=== PATIENT | female | born 1960 | race Caucasian/White ===

== ENCOUNTER 2016-10-06 23:13 | Inpatient (IN) | payer OTHER ==
[~2016-10-06] VITALS: Ht 160 cm; Wt 84.7 kg
[~2016-10-06 23:13] MED LIST: ADVAIR; ADVAIR 100/501 DISK IH; ADVAIR 250/501 DISK IH; ALBUTEROL SULF8.5 GM IH; ALBUTEROL2.5 MG/3 M IH; ALEVE220 MG PO; ALPRAZOLAM0.5 MG PO; ALPRAZOLAM1 MG PO; AMITRIPTYLINE100 MG PO; AMITRIPTYLINE150 MG PO; AMOXICILLIN875 MG PO; ATENOLOL100 MG PO; AZITHROMYCIN250 MG PO; AZITHROMYCIN500 M1 PO; BACLOFEN20 MG PO; BENICAR20 MG PO; CATAPRES0.1 MG PO; CEFTIN500 MG PO; CLEOCIN300 MG PO; CLONIDINE HCL0.1 MG PO; COMBIVENT INH14.7 GM IH; COMBIVENT RESPIM4 GM IH; COMBIVENT200 INHALA IH; CYPROHEPTAD2 MG/5 M2 PO; DALIRESP500 MCG PO; DIAZEPAM5 MG PO; DUONEB 2.5-0.5 M3 ML AEROSOL; ELAVIL100 MG PO; ELAVIL150 MG PO; FEXOFENADINE HC60 MG PO; Habitrol,Nicoderm CQ TD; INNOPRAN XL120 MG PO; KETOCONAZOLE60 GM TP; KLONOPIN1 MG PO; KLOR-CON M2020 MEQ PO; LASIX40 MG PO; LISINOPRIL40 MG PO; LYRICA300 MG PO; Levaquin PO; MAGIC MOUTHWASH PO; MIRAPEX0.5 MG PO; MIRAPEX1 MG PO; MOTRIN800 MG PO; NICOTINE PATCH1 EAC1 TD; NICOTINE PATCH1 EAC2 TD; NITROSTAT0.4 MG SL; NIZORAL 2% CREA15 GM TP; OXYCODON-ACETA1 EACH PO; OXYCODONE HCL10 MG PO; OXYCODONE HCL15 MG PO; OXYCODONE HCL20 M1 PO; PERCOCET 7.51 TABLET PO; PHENERGAN-CODE120 ML PO; PRAMIPEXOLE DIHY1 MG PO; PREDNISONE TAPER PO; PREDNISONE10 MG PO; PREDNISONE20 MG PO; PREDNISONE50 MG PO; PRIMIDONE250 MG PO; PRIMIDONE50 MG PO; PRINIVIL20 MG PO; PROAIR HFA8.5 GM IH; PROMETHAZINE HC25 M1 PO; PROPRANOLOL HC160 MG PO; PROPRANOLOL HCL80 M1 PO; PROVENTIL,2.5 MG/3 M IH; REQUIP0.5 MG PO; REVATIO20 MG PO; Revatio PO; SAVELLA50 MG PO; SEROQUEL12.5 MG PO; SILDENAFIL20 MG PO; SIMVASTATIN10 MG PO; SPIRIVA1 INHALATI IH; TENORMIN100 MG PO; THEO-DUR,THEOC300 MG PO; TOPAMAX100 MG PO; TRILEPTAL600 MG PO; Theo-Dur,Theocron PO; VENTOLIN HFA18 GM IH; VENTOLIN17 GM IH; XANAX1 MG PO; ZESTRIL,PRINIVI20 MG PO; ZESTRIL40 MG PO; ZITHROMAX TRI-500 MG PO; ZOCOR40 MG PO; ZOFRAN4 MG PO; ZOFRAN8 MG PO; Zestril,Prinivil PO
[2016-10-06 23:45] LABS: BASE EXCESS 6.4 mEq/L (-3 to +3); BICARBONATE 37.2 mEq/L (22-26); CARBOXY HGB 7.1 % (0-5); COMMENTS - BLOOD GASES C+A+; DEVICE NC; METHEMOGLOBIN 0.5 % (0-1.5); O2 FLOW 6 L/MIN; PCO2 81 mm Hg (35-45); PO2 71 mm Hg (80-100); SITE RR; pH 7.27 (7.35-7.45)
[2016-10-07] VITALS (16 sets, daily range): BP systolic 136–176; BP diastolic 66–94
[2016-10-07] LABS: HEMATOCRIT 52.3 % (36.0-46.0); MCHC 31.2 G/DL (30.0-36.0); MCV 86.6 FL (83-99); MEAN PLAT.VOLUME 10.2 uM^3 (9.5-12.4); PLATELET COUNT 136 K/uL (156-360); RBC DIS.WIDTH-CV 14.9 % (11.8-14.6); RBC DIS.WIDTH-SD 47.1 % (39-53); RED BLOOD COUNT 6.04 M/uL (3.80-5.20); WHITE BLOOD COUNT 10.3 K/uL (4.1-10.2)
[2016-10-07 00:11] LABS: CHLORIDE 101 mEq/L (99-109); INTER. NORMALIZED RATIO 1.1; POTASSIUM 4.7 mEq/L (3.7-5.4); PROTHROMBIN TIME 11.4 (9.2-11.2); SODIUM 141 mEq/L (136-147)
[2016-10-07 00:12] LABS: GLUCOSE 175 mg/dL (70-99)
[2016-10-07 00:14] LABS: ANION GAP 8 MEQ/L (2-14)
[2016-10-07 00:16] LABS: GFR ESTIMATE (CALCULATED) > 59 mL/min/
[2016-10-07 00:17] LABS: UREA NITROGEN (BUN) 12 mg/dL (9-23)
[2016-10-07 00:22] LABS: TROP-I INTERPRETATION NEGATIVE; TROPONIN-I 0.03 ng/mL (0.0-0.30)
[2016-10-07 00:27] LABS: QUANTITATIVE HCG < 4.0 MIU/ML
[2016-10-07] MEDS ORDERED: DESYREL100 MG PO (00:33)
[2016-10-07] MEDS ORDERED: ROPINIROLE HCL1 MG PO (00:34)
[2016-10-07] MEDS ORDERED: NEURONTIN300 MG PO (00:34)
[2016-10-07] MEDS ORDERED: FUROSEMIDE40 MG PO (00:35)
[2016-10-07] MEDS ORDERED: DURAGESIC12 MCG TD (00:35)
[2016-10-07] MEDS ORDERED: TIZANIDINE HCL4 MG PO (00:35)
[2016-10-07 00:36] LABS: BASE EXCESS 6.7 mEq/L (-3 to +3); BICARBONATE 36.4 mEq/L (22-26); CARBOXY HGB 6.6 % (0-5); COMMENTS - BLOOD GASES C+A+; DEVICE NIV; FI02 30 %; METHEMOGLOBIN 0.8 % (0-1.5); MODE SPONT; PCO2 74 mm Hg (35-45); PEEP 5 CM/H20; PO2 52 mm Hg (80-100); PRES. SUPPORT 12 CM/H2O; SITE RR; TOTAL RESP RATE 27 resp/min
[2016-10-07] MEDS ORDERED: ZITHROMAX250 MG PO (00:36)
[2016-10-07] MEDS ORDERED: IBUPROFEN800 MG PO (00:36)
[2016-10-07] MEDS ORDERED: AZITHROMYCIN500 M1 PO (00:38)
[2016-10-07 02:16] LABS: INFLUENZA A VIRAL ANTIGEN NEGATIVE; INFLUENZA B VIRAL ANTIGEN NEGATIVE
[2016-10-07 03:08] LABS: METH RESISTANT S AUREUS PCR NEGATIVE (NEGATIVE)
[2016-10-07 03:13] LABS: PROBE CHECK PASS; SPECIMEN PROCESSING CONTROL PASS
[2016-10-07 12:59] LABS: ANION GAP 11 MEQ/L (2-14); CHLORIDE 97 MEQ/L (99-109); GFR ESTIMATE (CALCULATED) > 59 mL/min/; GLUCOSE 226 mg/dL (70-99); POTASSIUM 4.3 MEQ/L (3.7-5.4); SAMPLE HEMOLYSIS CHECK 0; SAMPLE ICTERIC CHECK 0; SAMPLE LIPEMIA CHECK 0; SODIUM 137 MEQ/L (136-147); UREA NITROGEN (BUN) 15 mg/dL (9-23)
[2016-10-08 03:12] VITALS: BP 138/84
[2016-10-08 07:20] LABS: ANION GAP 6 MEQ/L (2-14); CHLORIDE 98 MEQ/L (99-109); GFR ESTIMATE (CALCULATED) > 59 mL/min/; GLUCOSE 190 mg/dL (70-99); POTASSIUM 4.7 MEQ/L (3.7-5.4); SAMPLE HEMOLYSIS CHECK 0; SAMPLE ICTERIC CHECK 0; SAMPLE LIPEMIA CHECK 0; SODIUM 139 MEQ/L (136-147)
[2016-10-08 07:22] LABS: UREA NITROGEN (BUN) 24 mg/dL (9-23)
[2016-10-08 07:38] LABS: EOSINOPHIL (%) 0 % (0-5); IMMATURE GRANULOCYTE (%) 0.3 % (0.0-0.7); IMMATURE GRANULOCYTE COUNT 0.1 K/uL; LYMPHOCYTE COUNT 0.5 K/uL (1.0-2.8); MCH 28.1 PG (29.0-34.0); MCHC 32.1 G/DL (30.0-36.0); MCV 87.4 FL (83-99); MEAN PLAT.VOLUME 11.3 uM^3 (9.5-12.4); MONOCYTE (%) 1.6 % (3-12); MONOCYTE COUNT 0.3 K/uL (0-0.8); NEUTROPHIL (%) 95.3 % (45-76); NEUTROPHIL COUNT 17.1 K/uL (1.8-6.4); PLATELET COUNT 143 K/uL (156-360); RBC DIS.WIDTH-CV 14.4 % (11.8-14.6); RBC DIS.WIDTH-SD 45.7 % (39-53); RED BLOOD COUNT 5.38 M/uL (3.80-5.20)
[2016-10-08 07:40] LABS: WHITE BLOOD COUNT 17.9 K/uL (4.1-10.2)
[2016-10-08 08:26] VITALS: BP 144/81
[2016-10-08 12:00] VITALS: BP 146/74
[2016-10-08 16:34] VITALS: BP 126/80
[2016-10-08 19:35] VITALS: BP 120/60
[2016-10-08 20:54] LABS: POINT-OF-CARE METER ID UU13113725
[2016-10-08 22:51] VITALS: BP 151/77
[2016-10-09 03:15] VITALS: BP 128/75
[2016-10-09 05:36] LABS: POINT-OF-CARE METER ID UU13113725
[2016-10-09 06:21] LABS: EOSINOPHIL (%) 0 % (0-5); HEMATOCRIT 47.5 % (36.0-46.0); IMMATURE GRANULOCYTE (%) 0.4 % (0.0-0.7); IMMATURE GRANULOCYTE COUNT 0.1 K/uL; LYMPHOCYTE COUNT 0.7 K/uL (1.0-2.8); MCH 26.3 PG (29.0-34.0); MCHC 30.1 G/DL (30.0-36.0); MCV 87.3 FL (83-99); MONOCYTE (%) 2.1 % (3-12); MONOCYTE COUNT 0.3 K/uL (0-0.8); NEUTROPHIL (%) 92.4 % (45-76); RBC DIS.WIDTH-CV 14.7 % (11.8-14.6); RBC DIS.WIDTH-SD 46.7 % (39-53); RED BLOOD COUNT 5.44 M/uL (3.80-5.20); WHITE BLOOD COUNT 14.1 K/uL (4.1-10.2)
[2016-10-09 06:45] LABS: ALKALINE PHOSPHATASE 98 IU/L (3-129); ANION GAP 4 MEQ/L (2-14); CHLORIDE 94 MEQ/L (99-109); GFR ESTIMATE (CALCULATED) > 59 mL/min/; GLUCOSE 163 mg/dL (70-99); MEAN PLAT.VOLUME 10.6 uM^3 (9.5-12.4); POTASSIUM 4.4 MEQ/L (3.7-5.4); SAMPLE HEMOLYSIS CHECK 0; SAMPLE ICTERIC CHECK 0; SAMPLE LIPEMIA CHECK 0; SODIUM 135 MEQ/L (136-147); TOTAL BILIRUBIN 0.4 MG/DL (0.0-1.0); UREA NITROGEN (BUN) 33 mg/dL (9-23); USER ID SLU
[2016-10-09 06:46] LABS: PLATELET COUNT UNABLE TO REPORT K/uL (156-360)
[2016-10-09 08:28] VITALS: BP 143/78
[2016-10-09 08:40] LABS: POINT-OF-CARE METER ID UU13113725
[2016-10-09 10:25] LABS: Estimated Average Glucose 140 mg/dL (70-123); HEMOGLOBIN A1c (GLYCOHEMOGLOB) 6.5 % HGB (Below 5.7)
[2016-10-09 11:40] VITALS: BP 145/78
[2016-10-09 11:43] LABS: ADD MIUA? NO; BILIRUBIN NEGATIVE; BLOOD NEGATIVE; COLOR YELLOW ((YELLOW)); GLUCOSE (STRIP) 50; KETONES NEGATIVE; LEUKOCYTES NEGATIVE; NITRITE NEGATIVE; PROTEIN (STRIP) NEGATIVE; SPECIFIC GRAVITY 1.025 (1.000-1.030); UCUL ADDED? NO; UROBILINOGEN 0.2 MG/DL (0.2-1.0)
[2016-10-09 11:48] LABS: POINT-OF-CARE METER ID UU13113725
[2016-10-09 16:05] VITALS: BP 144/65
[2016-10-09 19:21] VITALS: BP 171/72
[2016-10-09 22:42] VITALS: BP 148/65
[2016-10-10 03:05] VITALS: BP 148/84; BP 184/86
[2016-10-10 07:15] LABS: EOSINOPHIL (%) 0 % (0-5); HEMATOCRIT 49.9 % (36.0-46.0); IMMATURE GRANULOCYTE (%) 0.4 % (0.0-0.7); IMMATURE GRANULOCYTE COUNT 0.1 K/uL; LYMPHOCYTE COUNT 0.9 K/uL (1.0-2.8); MCH 27.4 PG (29.0-34.0); MCHC 32.1 G/DL (30.0-36.0); MCV 85.3 FL (83-99); MONOCYTE (%) 4.9 % (3-12); MONOCYTE COUNT 0.7 K/uL (0-0.8); NEUTROPHIL (%) 88.1 % (45-76); NEUTROPHIL COUNT 11.8 K/uL (1.8-6.4); RBC DIS.WIDTH-CV 14.1 % (11.8-14.6); RBC DIS.WIDTH-SD 43.8 % (39-53); RED BLOOD COUNT 5.85 M/uL (3.80-5.20); WHITE BLOOD COUNT 13.4 K/uL (4.1-10.2)
[2016-10-10 07:18] VITALS: BP 162/84
[2016-10-10 07:38] LABS: ALKALINE PHOSPHATASE 92 IU/L (3-129); ANION GAP 5 MEQ/L (2-14); CHLORIDE 95 MEQ/L (99-109); GFR ESTIMATE (CALCULATED) > 59 mL/min/; GLUCOSE 101 mg/dL (70-99); POTASSIUM 4.8 MEQ/L (3.7-5.4); SAMPLE HEMOLYSIS CHECK 1; SAMPLE ICTERIC CHECK 0; SAMPLE LIPEMIA CHECK 0; SODIUM 137 MEQ/L (136-147); TOTAL BILIRUBIN 0.6 MG/DL (0.0-1.0); UREA NITROGEN (BUN) 21 mg/dL (9-23)
[2016-10-10 09:19] LABS: MEAN PLAT.VOLUME 10.4 uM^3 (9.5-12.4); PLAT.SUFFICIENCY DECREASED; USER ID TLW
[2016-10-10 09:21] LABS: PLATELET COUNT 142 K/uL (156-360)
[2016-10-10 10:37] LABS: BASE EXCESS 8.8 mEq/L (-3 to +3); BICARBONATE 36.7 mEq/L (22-26); CARBOXY HGB 2.1 % (0-5); METHEMOGLOBIN 1.2 % (0-1.5); pH 7.38 (7.35-7.45)
[2016-10-10 10:38] LABS: COMMENTS - BLOOD GASES A+C+; DEVICE NC; O2 FLOW 3 L/MIN; PCO2 62 mm Hg (35-45); PO2 63 mm Hg (80-100); SITE LR; TOTAL RESP RATE 18 resp/min
[2016-10-10 11:36] LABS: POINT-OF-CARE METER ID UU13113725
[2016-10-10 11:40] VITALS: BP 172/85
[2016-10-10 14:57] VITALS: BP 173/79
[2016-10-10 19:12] VITALS: BP 148/68
[2016-10-10 22:47] VITALS: BP 104/58
[2016-10-11 03:45] VITALS: BP 171/86
[2016-10-11 04:31] VITALS: BP 153/84
[2016-10-11 07:27] LABS: EOSINOPHIL (%) 0.7 % (0-5); EOSINOPHIL COUNT 0.1 K/uL (0-0.3); HEMATOCRIT 48.4 % (36.0-46.0); IMMATURE GRANULOCYTE (%) 0.3 % (0.0-0.7); LYMPHOCYTE COUNT 1.4 K/uL (1.0-2.8); MCH 27.5 PG (29.0-34.0); MCHC 32.4 G/DL (30.0-36.0); MCV 84.8 FL (83-99); MEAN PLAT.VOLUME 10.4 uM^3 (9.5-12.4); MONOCYTE (%) 7.1 % (3-12); MONOCYTE COUNT 0.8 K/uL (0-0.8); NEUTROPHIL (%) 78.8 % (45-76); NEUTROPHIL COUNT 8.7 K/uL (1.8-6.4); PLATELET COUNT 114 K/uL (156-360); RBC DIS.WIDTH-CV 14.3 % (11.8-14.6); RBC DIS.WIDTH-SD 44.2 % (39-53); RED BLOOD COUNT 5.71 M/uL (3.80-5.20)
[2016-10-11 07:33] LABS: ANION GAP 6 MEQ/L (2-14); CHLORIDE 97 MEQ/L (99-109); GFR ESTIMATE (CALCULATED) > 59 mL/min/; GLUCOSE 73 mg/dL (70-99); POTASSIUM 4.2 MEQ/L (3.7-5.4); SAMPLE HEMOLYSIS CHECK 0; SAMPLE ICTERIC CHECK 0; SAMPLE LIPEMIA CHECK 0; SODIUM 138 MEQ/L (136-147); UREA NITROGEN (BUN) 18 mg/dL (9-23)
[2016-10-11] MEDS ORDERED: POLYETHYLENE GL17 GM PO (09:17)
[2016-10-11] MEDS ORDERED: PREDNISONE10 MG PO (09:17)
[2016-10-11] MEDS ORDERED: DOCUSATE SODIU100 MG PO (09:17)
[2016-10-11] MEDS ORDERED: SILDENAFIL20 MG PO (09:17)
[2016-10-11] MEDS ORDERED: Chronulac,Cephulac,E PO (09:17)
[2016-10-11] MEDS ORDERED: SPIRIVA RESPIMAT4 GM IH (09:17)
[2016-10-11] MEDS ORDERED: CEFTIN500 MG PO (09:17)
[2016-10-11] MEDS ORDERED: ADVAIR HFA120 INHALA IH (09:17)
[2016-10-11] MEDS ORDERED: JANUVIA100 MG PO (09:17)
== END 2016-10-11 15:33 | disposition home or self-care (01) | DRG 190 ==
LOC: EME → EDBD 23:13 → 5EAST 10-07 00:29 → EDOF 10-07 00:29 → 4WEST 10-07 00:29 → 5EAST 10-07 13:57
PROVIDERS: Emergency Medicine; Hospitalist; Internal Medicine
PROC: 5A09458 Assistance with Respiratory Ventilation, 24-96 Consecutive Hours, Intermittent Positive Airway Pressure (ICD-10-PCS; principal; 2016-10-08)
DX: J44.1 Chronic obstructive pulmonary disease with (acute) exacerbation (principal); J96.21 Acute and chronic respiratory failure with hypoxia; J15.9 Unspecified bacterial pneumonia; G93.40 Encephalopathy, unspecified; C34.90 Malignant neoplasm of unspecified part of unspecified bronchus or lung; C79.9 Secondary malignant neoplasm of unspecified site; E87.2 Acidosis; E11.9 Type 2 diabetes mellitus without complications; F17.200 Nicotine dependence, unspecified, uncomplicated; I10 Essential (primary) hypertension; F32.9 Major depressive disorder, single episode, unspecified; Z66 Do not resuscitate; E78.5 Hyperlipidemia, unspecified; J96.22 Acute and chronic respiratory failure with hypercapnia; G40.909 Epilepsy, unspecified, not intractable, without status epilepticus; E66.9 Obesity, unspecified; G89.3 Neoplasm related pain (acute) (chronic); Z92.3 Personal history of irradiation; M54.9 Dorsalgia, unspecified; Z99.81 Dependence on supplemental oxygen
CPT/HCPCS: 36600; 70450; 71010; 71275; 80048; 80048 91; 80053; 80069; 81003; 82803; 82948; 83036; 83605; 84484; 84702; 85025; 85027; 85610; 85730; 87040; 87502; 87641; 93005; 94002; 94640; 94640 76; 94660; 94799; 99202; 99281; 99285; J0456; J0692; J0696; J1100; J1650; J1815; J2920; J2930; J7050; J7512; J7644; S0028

== ENCOUNTER 2016-11-10 21:05 | Inpatient (IN) | payer OTHER ==
[~2016-11-10] VITALS: Ht 161.3 cm; Wt 85.5 kg
[~2016-11-10 21:05] MED LIST changes: +ADVAIR HFA120 INHALA IH; +Chronulac,Cephulac,E PO; +DESYREL100 MG PO; +DOCUSATE SODIU100 MG PO; +DURAGESIC12 MCG TD; +FUROSEMIDE40 MG PO; +IBUPROFEN800 MG PO; +JANUVIA100 MG PO; +NEURONTIN300 MG PO; +POLYETHYLENE GL17 GM PO; +ROPINIROLE HCL1 MG PO; +SPIRIVA RESPIMAT4 GM IH; +TIZANIDINE HCL4 MG PO; +ZITHROMAX250 MG PO
[2016-11-10 21:42] LABS: BASE EXCESS 4.6 mEq/L (-3 to +3); CARBOXY HGB 14.2 % (0-5); COMMENTS - BLOOD GASES A+C+; DEVICE NC; METHEMOGLOBIN 0.7 % (0-1.5); O2 FLOW 4 L/MIN; PCO2 64 mm Hg (35-45); PO2 76 mm Hg (80-100); SITE LR; pH 7.32 (7.35-7.45)
[2016-11-10 21:43] LABS: TOTAL RESP RATE 18 resp/min
[2016-11-10 21:44] LABS: EOSINOPHIL (%) 1.5 % (0-5); EOSINOPHIL COUNT 0.1 K/uL (0-0.3); HEMATOCRIT 48.5 % (36.0-46.0); IMMATURE GRANULOCYTE (%) 0.5 % (0.0-0.7); INSTRUMENT ABS NEUTROPHIL CT 7.2 K/uL; LYMPHOCYTE COUNT 1.2 K/uL (1.0-2.8); MCH 26.5 PG (29.0-34.0); MCHC 31.1 G/DL (30.0-36.0); MCV 85.1 FL (83-99); MONOCYTE (%) 3.5 % (3-12); MONOCYTE COUNT 0.3 K/uL (0-0.8); NEUTROPHIL COUNT 7.2 K/uL (1.8-6.4); PLATELET COUNT 141 K/uL (156-360); RBC DIS.WIDTH-CV 14.5 % (11.8-14.6); RBC DIS.WIDTH-SD 44.1 % (39-53); WHITE BLOOD COUNT 8.9 K/uL (4.1-10.2)
[2016-11-10 21:54] LABS: CHLORIDE 104 mEq/L (99-109); INTER. NORMALIZED RATIO 1.1; POTASSIUM 4.1 mEq/L (3.7-5.4); PROTHROMBIN TIME 10.8 (9.2-11.2); PTT 29.3 (25-32); SODIUM 142 mEq/L (136-147)
[2016-11-10 21:56] LABS: GLUCOSE 156 mg/dL (70-99)
[2016-11-10 21:58] LABS: ANION GAP 6 MEQ/L (2-14); TOTAL BILIRUBIN 0.4 mg/dL (0.0-1.0)
[2016-11-10 22:00] LABS: ALKALINE PHOSPHATASE 114 IU/L (3-129); GFR ESTIMATE (CALCULATED) 55 mL/min/
[2016-11-10 22:01] LABS: UREA NITROGEN (BUN) 13 mg/dL (9-23)
[2016-11-10 22:04] LABS: TROP-I INTERPRETATION NEGATIVE; TROPONIN-I < 0.01 ng/mL (0.0-0.30)
[2016-11-10] MEDS ORDERED: SIMVASTATIN40 MG PO (23:16)
[2016-11-10] MEDS ORDERED: LISINOPRIL40 MG PO (23:17)
[2016-11-11] VITALS (7 sets, daily range): BP systolic 125–185; BP diastolic 68–88
[2016-11-11 04:56] LABS: METH RESISTANT S AUREUS PCR NEGATIVE (NEGATIVE)
[2016-11-11 05:09] LABS: PROBE CHECK PASS; SPECIMEN PROCESSING CONTROL PASS
[2016-11-11 07:44] LABS: POINT-OF-CARE USER ID NUTSLF44
[2016-11-11 10:30] LABS: ANION GAP 6 MEQ/L (2-14); CHLORIDE 102 MEQ/L (99-109); GFR ESTIMATE (CALCULATED) > 59 mL/min/; GLUCOSE 204 mg/dL (70-99); SAMPLE HEMOLYSIS CHECK 1; SAMPLE ICTERIC CHECK 0; SAMPLE LIPEMIA CHECK 0; SODIUM 136 MEQ/L (136-147); UREA NITROGEN (BUN) 15 mg/dL (9-23)
[2016-11-11 10:34] LABS: HEMATOCRIT 45.1 % (36.0-46.0); MCH 26.3 PG (29.0-34.0); MCHC 30.6 G/DL (30.0-36.0); MCV 85.9 FL (83-99); MEAN PLAT.VOLUME 10.5 uM^3 (9.5-12.4); PLATELET COUNT 131 K/uL (156-360); RBC DIS.WIDTH-CV 14.3 % (11.8-14.6); RBC DIS.WIDTH-SD 43.4 % (39-53); RED BLOOD COUNT 5.25 M/uL (3.80-5.20)
[2016-11-11 11:49] LABS: POINT-OF-CARE METER ID UU13113698; POINT-OF-CARE USER ID NUTSLF44
[2016-11-11 16:25] LABS: POINT-OF-CARE METER ID UU13113698; POINT-OF-CARE USER ID NUTSLF44
[2016-11-11 21:01] LABS: POINT-OF-CARE METER ID UU13113781
[2016-11-12 04:33] VITALS: BP 141/63
[2016-11-12 08:02] VITALS: BP 138/65
[2016-11-12 08:10] LABS: POINT-OF-CARE METER ID UU13113698
[2016-11-12 11:16] VITALS: BP 118/59
[2016-11-12 12:40] LABS: ANION GAP 6 MEQ/L (2-14); CHLORIDE 97 MEQ/L (99-109); GFR ESTIMATE (CALCULATED) > 59 mL/min/; GLUCOSE 209 mg/dL (70-99); POTASSIUM 4.4 MEQ/L (3.7-5.4); SAMPLE HEMOLYSIS CHECK 0; SAMPLE ICTERIC CHECK 0; SAMPLE LIPEMIA CHECK 0; SODIUM 132 MEQ/L (136-147); UREA NITROGEN (BUN) 20 mg/dL (9-23)
[2016-11-12 13:11] LABS: HEMATOCRIT 46.2 % (36.0-46.0); MCH 26.4 PG (29.0-34.0); MCV 85.2 FL (83-99); MEAN PLAT.VOLUME 11.5 uM^3 (9.5-12.4); RBC DIS.WIDTH-CV 14.3 % (11.8-14.6); RBC DIS.WIDTH-SD 43.8 % (39-53); RED BLOOD COUNT 5.42 M/uL (3.80-5.20)
[2016-11-12 13:14] LABS: PLATELET COUNT 199 K/uL (156-360)
[2016-11-12 17:12] VITALS: BP 138/85
[2016-11-12 21:20] VITALS: BP 146/79
[2016-11-12 21:39] LABS: POINT-OF-CARE METER ID UU14174216
[2016-11-12 23:20] VITALS: BP 137/62
[2016-11-13 03:58] VITALS: BP 142/72
[2016-11-13 07:13] VITALS: BP 129/69
[2016-11-13 07:42] LABS: POINT-OF-CARE METER ID UU13113698
[2016-11-13 11:07] VITALS: BP 130/75
[2016-11-13 11:19] LABS: POINT-OF-CARE METER ID UU13113698
[2016-11-13 15:58] VITALS: BP 131/66
[2016-11-13 15:58] LABS: POINT-OF-CARE METER ID UU13113698
[2016-11-13 18:46] LABS: INFLUENZA A VIRAL ANTIGEN NEGATIVE; INFLUENZA B VIRAL ANTIGEN NEGATIVE
[2016-11-13 20:41] VITALS: BP 131/64
[2016-11-13 21:36] LABS: POINT-OF-CARE METER ID UU13113698
[2016-11-14 00:04] VITALS: BP 142/73
[2016-11-14 03:07] VITALS: BP 158/79
[2016-11-14 08:09] LABS: POINT-OF-CARE USER ID ENVKC36
[2016-11-14 08:15] VITALS: BP 129/74
[2016-11-14 11:40] LABS: POINT-OF-CARE METER ID UU13113781; POINT-OF-CARE USER ID ENVKC36
[2016-11-14 12:30] VITALS: BP 152/66
[2016-11-14] MEDS ORDERED: CEFTIN500 MG PO (13:46)
[2016-11-14] MEDS ORDERED: PREDNISONE20 MG PO (13:57)
[2016-11-14 15:51] LABS: HEMATOCRIT 45.2 % (36.0-46.0); MCH 26.2 PG (29.0-34.0); MCHC 30.5 G/DL (30.0-36.0); MCV 85.8 FL (83-99); MEAN PLAT.VOLUME 10.5 uM^3 (9.5-12.4); PLATELET COUNT 185 K/uL (156-360); RBC DIS.WIDTH-CV 14.3 % (11.8-14.6); RBC DIS.WIDTH-SD 44.7 % (39-53); RED BLOOD COUNT 5.27 M/uL (3.80-5.20); WHITE BLOOD COUNT 9.1 K/uL (4.1-10.2)
== END 2016-11-14 16:00 | disposition home health service (06) | DRG 190 ==
LOC: EME → EDBD 21:05 → EME 21:05 → EDOF 11-11 00:57 → 4EAST 11-11 00:57
PROVIDERS: Emergency Medicine; Family Medicine; Physician Assistant; Student in an Organized Health Care Education/Training Program
DX: J44.1 Chronic obstructive pulmonary disease with (acute) exacerbation (principal); J96.01 Acute respiratory failure with hypoxia; J96.02 Acute respiratory failure with hypercapnia; E66.2 Morbid (severe) obesity with alveolar hypoventilation; F33.9 Major depressive disorder, recurrent, unspecified; Z99.81 Dependence on supplemental oxygen; I27.2 Other secondary pulmonary hypertension; J20.9 Acute bronchitis, unspecified; I10 Essential (primary) hypertension; M79.7 Fibromyalgia; E78.5 Hyperlipidemia, unspecified; G43.909 Migraine, unspecified, not intractable, without status migrainosus; F17.210 Nicotine dependence, cigarettes, uncomplicated; E11.9 Type 2 diabetes mellitus without complications; G89.29 Other chronic pain; Z85.118 Personal history of other malignant neoplasm of bronchus and lung; Z68.32 Body mass index [BMI] 32.0-32.9, adult
CPT/HCPCS: 36600; 71010; 71020; 80048; 80053; 81003; 82803; 82948; 83605; 83880; 84484; 85025; 85027; 85610; 85730; 87040; 87070; 87205; 87502; 87641; 93005; 94640; 94640 76; 94644; 94660; 94799; 99202; 99281; 99284; J0456; J0696; J1644; J1815; J2930; J7030; J7050; J7644

== ENCOUNTER 2016-12-23 10:12 | Inpatient (IN) | payer OTHER ==
[~2016-12-23] VITALS: Ht 162.6 cm; Wt 82.6 kg
[~2016-12-23 10:12] MED LIST changes: +SIMVASTATIN40 MG PO
[2016-12-23 11:07] LABS: MCH 26.3 PG (29.0-34.0); MCHC 30.4 G/DL (30.0-36.0); MCV 86.5 FL (83-99); MEAN PLAT.VOLUME 10.3 uM^3 (9.5-12.4); PLATELET COUNT 115 K/uL (156-360); RBC DIS.WIDTH-SD 46.8 % (39-53); RED BLOOD COUNT 5.55 M/uL (3.80-5.20); WHITE BLOOD COUNT 7.6 K/uL (4.1-10.2)
[2016-12-23 11:18] LABS: CHLORIDE 101 mEq/L (99-109); SODIUM 140 mEq/L (136-147)
[2016-12-23 11:19] LABS: GLUCOSE 124 mg/dL (70-99)
[2016-12-23 11:21] LABS: ANION GAP 7 MEQ/L (2-14)
[2016-12-23 11:23] LABS: GFR ESTIMATE (CALCULATED) > 59 mL/min/
[2016-12-23 11:24] LABS: UREA NITROGEN (BUN) 16 mg/dL (9-23)
[2016-12-23 12:08] LABS: TROP-I INTERPRETATION NEGATIVE; TROPONIN-I 0.02 ng/mL (0.0-0.30)
[2016-12-23] MEDS ORDERED: CATAPRES0.2 MG PO (13:24)
[2016-12-23] MEDS ORDERED: DURAGESIC25 MCG TD (13:26)
[2016-12-23] MEDS ORDERED: IBUPROFEN800 MG PO (13:28)
[2016-12-23] MEDS ORDERED: ZITHROMAX500 MG PO (13:29)
[2016-12-23] MEDS ORDERED: LASIX40 MG PO (13:29)
[2016-12-23 16:12] LABS: TROP-I INTERPRETATION NEGATIVE; TROPONIN-I 0.02 ng/mL (0.0-0.30)
[2016-12-23 16:18] VITALS: BP 122/60
[2016-12-23 16:59] VITALS: BP 170/88
[2016-12-23 18:49] VITALS: BP 131/68
[2016-12-23 19:35] VITALS: BP 134/68
[2016-12-23 21:28] LABS: TROP-I INTERPRETATION NEGATIVE; TROPONIN-I 0.01 ng/mL (0.0-0.30)
[2016-12-24] VITALS (8 sets, daily range): BP systolic 103–142; BP diastolic 50–84
[2016-12-24 03:43] LABS: TROP-I INTERPRETATION NEGATIVE; TROPONIN-I 0.01 ng/mL (0.0-0.30)
[2016-12-24 12:01] LABS: BASE EXCESS 9.1 mEq/L (-3 to +3); BICARBONATE 38.9 mEq/L (22-26); CARBOXY HGB 4.1 % (0-5); METHEMOGLOBIN 1.2 % (0-1.5); PO2 48 mm Hg (80-100)
[2016-12-24 12:04] LABS: COMMENTS - BLOOD GASES NA C+; DEVICE NC; O2 FLOW 4 L/MIN; PCO2 79 mm Hg (35-45); SITE RR
[2016-12-24 12:05] LABS: TOTAL RESP RATE 15 resp/min
[2016-12-24 12:35] LABS: MCH 26.5 PG (29.0-34.0); MCHC 29.8 G/DL (30.0-36.0); MCV 88.8 FL (83-99); MEAN PLAT.VOLUME 10.7 uM^3 (9.5-12.4); PLATELET COUNT 115 K/uL (156-360); RBC DIS.WIDTH-CV 15.3 % (11.8-14.6); RBC DIS.WIDTH-SD 49.6 % (39-53); RED BLOOD COUNT 5.29 M/uL (3.80-5.20); WHITE BLOOD COUNT 7.4 K/uL (4.1-10.2)
[2016-12-24 13:06] LABS: ALKALINE PHOSPHATASE 112 IU/L (3-129); ANION GAP 3 MEQ/L (2-14); CHLORIDE 100 MEQ/L (99-109); GFR ESTIMATE (CALCULATED) > 59 mL/min/; GLUCOSE 108 mg/dL (70-99); POTASSIUM 4.6 MEQ/L (3.7-5.4); SAMPLE HEMOLYSIS CHECK 0; SAMPLE ICTERIC CHECK 0; SAMPLE LIPEMIA CHECK 0; SODIUM 141 MEQ/L (136-147); TOTAL BILIRUBIN 0.7 MG/DL (0.0-1.0); UREA NITROGEN (BUN) 19 mg/dL (9-23)
[2016-12-24 14:42] LABS: ADD MIUA? NO; BILIRUBIN NEGATIVE; BLOOD NEGATIVE; COLOR YELLOW ((YELLOW)); GLUCOSE (STRIP) NEGATIVE; KETONES NEGATIVE; LEUKOCYTES NEGATIVE; NITRITE NEGATIVE; PROTEIN (STRIP) NEGATIVE; UCUL ADDED? NO; UROBILINOGEN 0.2 MG/DL (0.2-1.0)
[2016-12-24 14:55] LABS: METH RESISTANT S AUREUS PCR NEGATIVE (NEGATIVE)
[2016-12-24 14:56] LABS: PROBE CHECK PASS; SPECIMEN PROCESSING CONTROL PASS
[2016-12-24 15:17] LABS: BASE EXCESS 10.4 mEq/L (-3 to +3); BICARBONATE 39.4 mEq/L (22-26); COMMENTS - BLOOD GASES A+C+; METHEMOGLOBIN 1.3 % (0-1.5); O2 FLOW 5 L/MIN; PCO2 73 mm Hg (35-45); PO2 55 mm Hg (80-100); SITE RR; pH 7.34 (7.35-7.45)
[2016-12-24 15:18] LABS: CONTINUOUS POS AIRWAY PRESSURE 5 cm H2O; DEVICE BIPAP; TOTAL RESP RATE 16 resp/min
[2016-12-25] VITALS: BP 96/61
[2016-12-25 04:00] VITALS: BP 125/64
[2016-12-25 08:30] VITALS: BP 161/54
[2016-12-25 08:54] LABS: HEMATOCRIT 44.9 % (36.0-46.0); MCH 26.1 PG (29.0-34.0); MCHC 30.5 G/DL (30.0-36.0); MCV 85.5 FL (83-99); MEAN PLAT.VOLUME 10.7 uM^3 (9.5-12.4); PLATELET COUNT 121 K/uL (156-360); RBC DIS.WIDTH-CV 14.9 % (11.8-14.6); RED BLOOD COUNT 5.25 M/uL (3.80-5.20); WHITE BLOOD COUNT 8.5 K/uL (4.1-10.2)
[2016-12-25 09:27] LABS: ANION GAP 4 MEQ/L (2-14); CHLORIDE 95 MEQ/L (99-109); GFR ESTIMATE (CALCULATED) > 59 mL/min/; GLUCOSE 100 mg/dL (70-99); POTASSIUM 3.7 MEQ/L (3.7-5.4); SAMPLE HEMOLYSIS CHECK 0; SAMPLE ICTERIC CHECK 0; SAMPLE LIPEMIA CHECK 0; SODIUM 137 MEQ/L (136-147); UREA NITROGEN (BUN) 23 mg/dL (9-23)
[2016-12-25 12:00] VITALS: BP 100/47
[2016-12-25 16:00] VITALS: BP 142/68
[2016-12-25 20:00] VITALS: BP 116/55
[2016-12-26] VITALS: BP 139/61
[2016-12-26 04:00] VITALS: BP 91/49
[2016-12-26 06:00] VITALS: BP 91/49
[2016-12-26 06:27] LABS: HEMATOCRIT 41.9 % (36.0-46.0); MCH 26.3 PG (29.0-34.0); MCHC 30.5 G/DL (30.0-36.0); MEAN PLAT.VOLUME 10.4 uM^3 (9.5-12.4); PLATELET COUNT 116 K/uL (156-360); RBC DIS.WIDTH-CV 14.8 % (11.8-14.6); RBC DIS.WIDTH-SD 46.8 % (39-53); RED BLOOD COUNT 4.87 M/uL (3.80-5.20); WHITE BLOOD COUNT 5.9 K/uL (4.1-10.2)
[2016-12-26 06:47] LABS: ANION GAP 6 MEQ/L (2-14); CHLORIDE 95 MEQ/L (99-109); GFR ESTIMATE (CALCULATED) > 59 mL/min/; GLUCOSE 114 mg/dL (70-99); POTASSIUM 3.9 MEQ/L (3.7-5.4); SAMPLE HEMOLYSIS CHECK 0; SAMPLE ICTERIC CHECK 0; SAMPLE LIPEMIA CHECK 0; SODIUM 138 MEQ/L (136-147); UREA NITROGEN (BUN) 23 mg/dL (9-23)
[2016-12-26] MEDS ORDERED: DELTASONE20 M1 PO (07:53)
[2016-12-26] MEDS ORDERED: LIDOCAINE700 MG TD (07:53)
== END 2016-12-26 08:50 | disposition home health service (06) | DRG 189 ==
LOC: EME 10:12 → 5WEST 13:32 → EDOF 13:32 → 5WEST 16:13 → 4WEST 12-24 10:53 → 5WEST 12-24 12:40 → 4WEST 12-24 13:18
PROVIDERS: Hospitalist; Nurse Practitioner Adult Health
DX: J96.22 Acute and chronic respiratory failure with hypercapnia (principal); G93.49 Other encephalopathy; Z99.81 Dependence on supplemental oxygen; I27.2 Other secondary pulmonary hypertension; J44.1 Chronic obstructive pulmonary disease with (acute) exacerbation; E66.2 Morbid (severe) obesity with alveolar hypoventilation; C34.90 Malignant neoplasm of unspecified part of unspecified bronchus or lung; R07.89 Other chest pain; E11.9 Type 2 diabetes mellitus without complications; I10 Essential (primary) hypertension; S22.32XA Fracture of one rib, left side, initial encounter for closed fracture; X58.XXXA Exposure to other specified factors, initial encounter; F17.210 Nicotine dependence, cigarettes, uncomplicated; E78.5 Hyperlipidemia, unspecified; G89.29 Other chronic pain; J96.21 Acute and chronic respiratory failure with hypoxia; Z68.31 Body mass index [BMI] 31.0-31.9, adult; M54.9 Dorsalgia, unspecified
CPT/HCPCS: 36600; 70450; 70551; 71020; 71100; 80048; 80053; 81003; 82803; 83880; 84484; 85027; 87641; 93005; 94640; 94640 76; 94660; 94799; 99281; 99285; G0378; J0360; J1644; J1885; J2270; J2405; J2930

== ENCOUNTER 2017-08-28 21:51 | Inpatient (IN) | payer OTHER ==
[~2017-08-28] VITALS: Ht 161.3 cm; Wt 78.9 kg
[~2017-08-28 21:51] MED LIST changes: +CATAPRES0.2 MG PO; +DELTASONE20 M1 PO; +DURAGESIC25 MCG TD; +LIDOCAINE700 MG TD; +ZITHROMAX500 MG PO
[2017-08-28 23:04] LABS: BASOPHIL (%) 0.2 % (0-1); EOSINOPHIL (%) 2.1 % (0-5); EOSINOPHIL COUNT 0.2 K/uL (0-0.3); HEMATOCRIT 48.4 % (36.0-46.0); HEMOGLOBIN 15.6 G/DL (11.9-15.5); IMMATURE GRANULOCYTE (%) 0.8 % (0.0-0.7); LYMPHOCYTE (%) 10.7 % (15-42); LYMPHOCYTE COUNT 0.9 K/uL (1.0-2.8); MCH 28.1 PG (29.0-34.0); MCHC 32.2 G/DL (30.0-36.0); MCV 87.1 FL (83-99); MONOCYTE (%) 4.7 % (3-12); MONOCYTE COUNT 0.4 K/uL (0-0.8); NEUTROPHIL (%) 81.5 % (45-76); NEUTROPHIL COUNT 6.9 K/uL (1.8-6.4); PLATELET COUNT 127 K/uL (156-360); RBC DIS.WIDTH-CV 13.3 % (11.8-14.6); RBC DIS.WIDTH-SD 42.5 % (39-53); RED BLOOD COUNT 5.56 M/uL (3.80-5.20); WHITE BLOOD COUNT 8.5 K/uL (4.1-10.2)
[2017-08-28 23:12] LABS: ALBUMIN 3.6 g/dL (3.2-4.8)
[2017-08-28 23:13] LABS: CHLORIDE 101 mEq/L (99-109); POTASSIUM 4.3 mEq/L (3.7-5.4); SODIUM 142 mEq/L (136-147)
[2017-08-28 23:15] LABS: GLUCOSE 187 mg/dL (70-99); TOTAL PROTEIN 5.8 g/dL (6.4-8.3)
[2017-08-28 23:17] LABS: TOTAL BILIRUBIN 0.3 mg/dL (0.0-1.0)
[2017-08-28 23:18] LABS: ALKALINE PHOSPHATASE 126 IU/L (3-129)
[2017-08-28 23:19] LABS: GFR ESTIMATE (CALCULATED) > 59 mL/min/
[2017-08-28 23:20] LABS: AST (GOT) 13 IU/L (2-34); UREA NITROGEN (BUN) 18 mg/dL (9-23)
[2017-08-28 23:22] LABS: ALT (GPT) 14 IU/L (3-49)
[2017-08-29] MEDS ORDERED: DRONABINOL5 MG PO (01:54)
[2017-08-29] MEDS ORDERED: ADVAIR HFA120 INHALA IH (01:54)
[2017-08-29] MEDS ORDERED: PROMETHAZINE HC25 M1 PO (01:54)
[2017-08-29] MEDS ORDERED: AMITIZA8 MICROGRA PO (01:55)
[2017-08-29] MEDS ORDERED: NIZORAL 2% CREA15 GM TP (01:55)
[2017-08-29] MEDS ORDERED: AMLODIPINE BESY10 MG PO (01:55)
[2017-08-29] MEDS ORDERED: OXYCONTIN20 MG PO (01:55)
[2017-08-29] MEDS ORDERED: ALEVE220 MG PO (01:55)
[2017-08-29 02:37] VITALS: BP 182/107
[2017-08-29 04:30] VITALS: BP 130/58
[2017-08-29 08:48] VITALS: BP 160/90
[2017-08-29 11:07] VITALS: BP 130/57
[2017-08-29 19:04] VITALS: BP 136/70
[2017-08-29 23:20] VITALS: BP 135/60
[2017-08-30 02:37] LABS: BASE EXCESS 11.1 mEq/L (-3 to +3); BICARBONATE 41.8 mEq/L (22-26); CARBOXY HGB 2.7 % (0-5); METHEMOGLOBIN 1.4 % (0-1.5); PO2 56 mm Hg (80-100)
[2017-08-30 02:38] LABS: COMMENTS - BLOOD GASES C+; DEVICE NCH; O2 FLOW 8 L/MIN; PCO2 85 mm Hg (35-45); SITE LR; TOTAL RESP RATE 28 resp/min
[2017-08-30 04:12] LABS: BASE EXCESS 11.7 mEq/L (-3 to +3); BICARBONATE 41.7 mEq/L (22-26); CARBOXY HGB 2.5 % (0-5); METHEMOGLOBIN 1.4 % (0-1.5); PO2 53 mm Hg (80-100); pH 7.33 (7.35-7.45)
[2017-08-30 04:13] LABS: COMMENTS - BLOOD GASES C+; DEVICE BIPAP 15/5; O2 FLOW 5 L/MIN; PCO2 79 mm Hg (35-45); SITE LR; TOTAL RESP RATE 20 resp/min
[2017-08-30 06:01] LABS: HEMATOCRIT 46.8 % (36.0-46.0); HEMOGLOBIN 14.7 G/DL (11.9-15.5); MCH 27.4 PG (29.0-34.0); MCHC 31.4 G/DL (30.0-36.0); MCV 87.3 FL (83-99); PLATELET COUNT 134 K/uL (156-360); RBC DIS.WIDTH-SD 41.4 % (39-53); RED BLOOD COUNT 5.36 M/uL (3.80-5.20); WHITE BLOOD COUNT 9.7 K/uL (4.1-10.2)
[2017-08-30 08:00] VITALS: BP 182/82
[2017-08-30 09:10] LABS: BASE EXCESS 10.6 mEq/L (-3 to +3); BICARBONATE 39.9 mEq/L (22-26); CARBOXY HGB 2.8 % (0-5); COMMENTS - BLOOD GASES A+C+; DEVICE HFNC; METHEMOGLOBIN 1.2 % (0-1.5); O2 FLOW 4 L/MIN; PCO2 74 mm Hg (35-45); PO2 54 mm Hg (80-100); SITE RR; TOTAL RESP RATE 14 resp/min; pH 7.34 (7.35-7.45)
[2017-08-30 12:05] VITALS: BP 140/75
[2017-08-30 15:15] VITALS: BP 137/70
[2017-08-30 20:00] VITALS: BP 142/70
[2017-08-30 23:14] VITALS: BP 159/68
[2017-08-31 08:00] VITALS: BP 150/79
[2017-08-31 11:45] VITALS: BP 127/89
[2017-08-31] MEDS ORDERED: AMOX TR-K CLV1 EAC4 PO (11:47)
[2017-08-31] MEDS ORDERED: [UNRECOGNIZED DRUG - CODE] PO (11:50)
== END 2017-08-31 15:29 | disposition home or self-care (01) | DRG 189 ==
LOC: EME 21:51 → 5WEST 08-29 01:34 → EDOF 08-29 01:34 → ENRESERV 08-29 01:35 → 5WEST 08-29 02:34
PROVIDERS: Emergency Medicine; Hospitalist; Internal Medicine; Physician Assistant Medical
PROC: 5A09357 Assistance with Respiratory Ventilation, Less than 24 Consecutive Hours, Continuous Positive Airway Pressure (ICD-10-PCS; principal; 2017-08-30)
DX: J96.21 Acute and chronic respiratory failure with hypoxia (principal); J44.1 Chronic obstructive pulmonary disease with (acute) exacerbation; J96.22 Acute and chronic respiratory failure with hypercapnia; K11.5 Sialolithiasis; K11.23 Chronic sialoadenitis; Z85.118 Personal history of other malignant neoplasm of bronchus and lung; Z99.81 Dependence on supplemental oxygen; I11.0 Hypertensive heart disease with heart failure; I50.9 Heart failure, unspecified; M79.7 Fibromyalgia; G47.33 Obstructive sleep apnea (adult) (pediatric); I27.20 Pulmonary hypertension, unspecified; R13.10 Dysphagia, unspecified
CPT/HCPCS: 36600; 70487; 80053; 82140; 82803; 82948; 85025; 85027; 94640; 94640 76; 94660; 94760; 94799; 99202; 99281; 99285; G0378; J0360; J1650; J1885; J7030; J8540

== ENCOUNTER 2017-11-22 13:25 | Inpatient (IN) | payer OTHER ==
[2017-11-22] VITALS (11 sets, daily range): BP systolic 130–175; BP diastolic 100–114
[~2017-11-22] VITALS: Ht 160 cm; Wt 83.4 kg
[~2017-11-22 13:25] MED LIST changes: +AMITIZA8 MICROGRA PO; +AMLODIPINE BESY10 MG PO; +AMOX TR-K CLV1 EAC4 PO; +DRONABINOL5 MG PO; +OXYCONTIN20 MG PO; +[UNRECOGNIZED DRUG - CODE] PO
[2017-11-22 14:13] LABS: BASOPHIL (%) 0.3 % (0-1); EOSINOPHIL (%) 1.8 % (0-5); EOSINOPHIL COUNT 0.1 K/uL (0-0.3); HEMATOCRIT 49.9 % (36.0-46.0); HEMOGLOBIN 15.3 G/DL (11.9-15.5); IMMATURE GRANULOCYTE (%) 0.7 % (0.0-0.7); LYMPHOCYTE (%) 10.9 % (15-42); LYMPHOCYTE COUNT 0.8 K/uL (1.0-2.8); MCH 27.2 PG (29.0-34.0); MCHC 30.7 G/DL (30.0-36.0); MCV 88.6 FL (83-99); MONOCYTE (%) 7.2 % (3-12); MONOCYTE COUNT 0.6 K/uL (0-0.8); NEUTROPHIL (%) 79.1 % (45-76); NRBC (%) 0.4 /100 WBC (0-0); PLATELET COUNT 149 K/uL (156-360); RBC DIS.WIDTH-CV 14.8 % (11.8-14.6); RBC DIS.WIDTH-SD 48.4 % (39-53); RED BLOOD COUNT 5.63 M/uL (3.80-5.20); WHITE BLOOD COUNT 7.6 K/uL (4.1-10.2)
[2017-11-22 14:15] LABS: ALBUMIN 3.4 g/dL (3.2-4.8); CHLORIDE 102 mEq/L (99-109); POTASSIUM 4.7 mEq/L (3.7-5.4); SODIUM 141 mEq/L (136-147)
[2017-11-22 14:17] LABS: GLUCOSE 138 mg/dL (70-99)
[2017-11-22 14:18] LABS: TOTAL PROTEIN 5.7 g/dL (6.4-8.3)
[2017-11-22 14:19] LABS: TOTAL BILIRUBIN 0.5 mg/dL (0.0-1.0)
[2017-11-22 14:21] LABS: ALKALINE PHOSPHATASE 148 IU/L (3-129); CREATININE 0.9 mg/dL (0.6-1.3); GFR ESTIMATE (CALCULATED) > 59 mL/min/
[2017-11-22 14:22] LABS: UREA NITROGEN (BUN) 18 mg/dL (9-23)
[2017-11-22 14:23] LABS: AST (GOT) 16 IU/L (2-34)
[2017-11-22 14:24] LABS: ALT (GPT) 16 IU/L (3-49)
[2017-11-22 14:24] LABS: BASE EXCESS 8.2 mEq/L (-3 to +3); CARBOXY HGB 5.3 % (0-5); METHEMOGLOBIN 0.6 % (0-1.5); PO2 76 mm Hg (80-100)
[2017-11-22 14:28] LABS: COMMENTS - BLOOD GASES A+C+; DEVICE NC; O2 FLOW 3 L/MIN; PCO2 83 mm Hg (35-45); SITE LR; pH 7.28 (7.35-7.45)
[2017-11-22 14:33] LABS: TROP-I INTERPRETATION NEGATIVE; TROPONIN-I 0.05 ng/mL (0.0-0.30)
[2017-11-22] MEDS ORDERED: KLONOPIN1 MG PO (15:33)
[2017-11-22 17:35] LABS: BASE EXCESS 10.7 mEq/L (-3 to +3); BICARBONATE 41.8 mEq/L (22-26); CARBOXY HGB 4.9 % (0-5); COMMENTS - BLOOD GASES A+C+; METHEMOGLOBIN 0.8 % (0-1.5); PCO2 85 mm Hg (35-45); PO2 71 mm Hg (80-100); SITE LR
[2017-11-22 17:37] LABS: DEVICE NC; O2 FLOW 3 L/MIN
[2017-11-23] VITALS (9 sets, daily range): BP systolic 111–147; BP diastolic 58–108
[2017-11-24] VITALS (12 sets, daily range): BP systolic 93–146; BP diastolic 49–74
[2017-11-24 11:02] LABS: BASE EXCESS 5.9 mEq/L (-3 to +3); CARBOXY HGB 2.6 % (0-5); COMMENTS - BLOOD GASES A+C+; METHEMOGLOBIN 1.2 % (0-1.5); O2 FLOW 5 L/MIN; PCO2 95 mm Hg (35-45); PO2 69 mm Hg (80-100); SITE RR
[2017-11-24 11:03] LABS: DEVICE NC; TOTAL RESP RATE 16 resp/min
[2017-11-24 11:04] LABS: pH 7.21 (7.35-7.45)
[2017-11-24 16:20] LABS: BASE EXCESS 9.9 mEq/L (-3 to +3); BICARBONATE 41.3 mEq/L (22-26); CARBOXY HGB 2.4 % (0-5); COMMENTS - BLOOD GASES A+C+; DEVICE PB 980; FI02 45 %; MECHANICAL RATE 14 resp/min; METHEMOGLOBIN 1.4 % (0-1.5); MODE AC NIV; PCO2 90 mm Hg (35-45); PO2 96 mm Hg (80-100); SITE RR; TIDAL VOLUME 500 ML; TOTAL RESP RATE 16 resp/min
[2017-11-24 16:21] LABS: PEEP 7 CM/H20; pH 7.27 (7.35-7.45)
[2017-11-24 19:13] LABS: BICARBONATE 41.3 mEq/L (22-26); CARBOXY HGB 2.5 % (0-5); COMMENTS - BLOOD GASES RR; DEVICE NC; METHEMOGLOBIN 1.3 % (0-1.5); O2 FLOW 5 L/MIN; PCO2 82 mm Hg (35-45); PO2 52 mm Hg (80-100); pH 7.31 (7.35-7.45)
[2017-11-25] VITALS (14 sets, daily range): BP systolic 92–147; BP diastolic 52–100
[2017-11-25 04:36] LABS: BASOPHIL (%) 0.1 % (0-1); EOSINOPHIL (%) 0.1 % (0-5); HEMATOCRIT 47.3 % (36.0-46.0); HEMOGLOBIN 14.4 G/DL (11.9-15.5); IMMATURE GRANULOCYTE (%) 0.5 % (0.0-0.7); LYMPHOCYTE (%) 3.3 % (15-42); LYMPHOCYTE COUNT 0.4 K/uL (1.0-2.8); MCH 26.5 PG (29.0-34.0); MCHC 30.4 G/DL (30.0-36.0); MCV 86.9 FL (83-99); MONOCYTE (%) 0.6 % (3-12); MONOCYTE COUNT 0.1 K/uL (0-0.8); NEUTROPHIL (%) 95.4 % (45-76); NEUTROPHIL COUNT 10.2 K/uL (1.8-6.4); PLATELET COUNT 158 K/uL (156-360); RBC DIS.WIDTH-CV 14.6 % (11.8-14.6); RBC DIS.WIDTH-SD 46.4 % (39-53); RED BLOOD COUNT 5.44 M/uL (3.80-5.20); WHITE BLOOD COUNT 10.7 K/uL (4.1-10.2)
[2017-11-25 04:48] LABS: ALBUMIN 3.5 g/dL (3.2-4.8); CHLORIDE 95 mEq/L (99-109); POTASSIUM 4.4 mEq/L (3.7-5.4); SODIUM 139 mEq/L (136-147)
[2017-11-25 04:50] LABS: GLUCOSE 204 mg/dL (70-99); TOTAL PROTEIN 5.4 g/dL (6.4-8.3)
[2017-11-25 04:52] LABS: TOTAL BILIRUBIN 0.4 mg/dL (0.0-1.0)
[2017-11-25 04:54] LABS: ALKALINE PHOSPHATASE 112 IU/L (3-129); GFR ESTIMATE (CALCULATED) > 59 mL/min/
[2017-11-25 04:55] LABS: AST (GOT) 9 IU/L (2-34)
[2017-11-25 04:56] LABS: DIRECT BILIRUBIN 0.3 mg/dL (0.0-0.3)
[2017-11-25 04:57] LABS: ALT (GPT) 12 IU/L (3-49); UREA NITROGEN (BUN) 30 mg/dL (9-23)
[2017-11-26] VITALS (8 sets, daily range): BP systolic 92–162; BP diastolic 56–118
[2017-11-26] MEDS ORDERED: OXYCODONE HCL5 MG PO (12:08)
== END 2017-11-26 13:37 | disposition left against medical advice (07) | DRG 190 ==
LOC: EME 13:25 → 4WEST 18:10 → 4EAST 18:10 → EDOF 18:10 → ENRESERV 18:16 → 4WEST 20:42 → ENRESERV 11-23 02:13 → 4EAST 11-23 02:55 → ENRESERV 11-24 11:13 → 4WEST 11-24 11:34 → ENRESERV 11-25 12:13 → CANRESERV 11-25 12:13 → 4WEST 11-25 12:13
PROVIDERS: Emergency Medicine; Hospitalist; Internal Medicine Critical Care Medicine
PROC: 5A09357 Assistance with Respiratory Ventilation, Less than 24 Consecutive Hours, Continuous Positive Airway Pressure (ICD-10-PCS; principal; 2017-11-23)
DX: J44.1 Chronic obstructive pulmonary disease with (acute) exacerbation (principal); J96.21 Acute and chronic respiratory failure with hypoxia; J96.22 Acute and chronic respiratory failure with hypercapnia; Z99.81 Dependence on supplemental oxygen; E87.2 Acidosis; Z66 Do not resuscitate; R19.7 Diarrhea, unspecified; I27.20 Pulmonary hypertension, unspecified; I11.0 Hypertensive heart disease with heart failure; I50.9 Heart failure, unspecified; J98.11 Atelectasis; E66.2 Morbid (severe) obesity with alveolar hypoventilation; Z68.34 Body mass index [BMI] 34.0-34.9, adult; E78.5 Hyperlipidemia, unspecified; M79.7 Fibromyalgia; G43.909 Migraine, unspecified, not intractable, without status migrainosus; F32.9 Major depressive disorder, single episode, unspecified; F41.9 Anxiety disorder, unspecified; F17.210 Nicotine dependence, cigarettes, uncomplicated; Z91.19 Patient's noncompliance with other medical treatment and regimen; Z79.891 Long term (current) use of opiate analgesic; Z85.118 Personal history of other malignant neoplasm of bronchus and lung; Z92.3 Personal history of irradiation; Z98.51 Tubal ligation status; Z80.1 Family history of malignant neoplasm of trachea, bronchus and lung
CPT/HCPCS: 36600; 71045; 80048; 80053; 80076; 82803; 82948; 83605; 83880; 84484; 85025; 87040; 87070; 87205; 87502; 87641; 93005; 93306; 94002; 94640; 94640 76; 94660; 94799; 99202; 99281; 99285; J0360; J0456; J0696; J1650; J1940; J2405; J2543; J2930; J3370; J7050; J7512

== ENCOUNTER 2018-01-23 07:17 | Inpatient (IN) | payer OTHER ==
[~2018-01-23] VITALS: Ht 160 cm; Wt 77.7 kg
[2018-01-23] VITALS (9 sets, daily range): BP systolic 151–208; BP diastolic 95–119
[~2018-01-23 07:17] MED LIST changes: +OXYCODONE HCL5 MG PO
[2018-01-23 07:32] LABS: BICARBONATE 36.3 mEq/L (22-26); CARBOXY HGB 5.4 % (0-5); COMMENTS - BLOOD GASES A+C+; DEVICE NEBULIZER; METHEMOGLOBIN 0.7 % (0-1.5); O2 FLOW 8 L/MIN; PCO2 95 mm Hg (35-45); PO2 91 mm Hg (80-100); SITE RR; pH 7.19 (7.35-7.45)
[2018-01-23 07:52] LABS: INTER. NORMALIZED RATIO 1.1
[2018-01-23 07:53] LABS: BASOPHIL (%) 0.5 % (0-1); EOSINOPHIL (%) 1.4 % (0-5); EOSINOPHIL COUNT 0.1 K/uL (0-0.3); HEMATOCRIT 50.9 % (36.0-46.0); HEMOGLOBIN 15.7 G/DL (11.9-15.5); IMMATURE GRANULOCYTE (%) 0.8 % (0.0-0.7); LYMPHOCYTE COUNT 0.6 K/uL (1.0-2.8); MCH 26.8 PG (29.0-34.0); MCHC 30.8 G/DL (30.0-36.0); MONOCYTE (%) 5.8 % (3-12); MONOCYTE COUNT 0.4 K/uL (0-0.8); NEUTROPHIL (%) 82.5 % (45-76); NEUTROPHIL COUNT 5.2 K/uL (1.8-6.4); PLATELET COUNT 94 K/uL (156-360); RBC DIS.WIDTH-CV 15.6 % (11.8-14.6); RBC DIS.WIDTH-SD 49.4 % (39-53); RED BLOOD COUNT 5.85 M/uL (3.80-5.20); WHITE BLOOD COUNT 6.3 K/uL (4.1-10.2)
[2018-01-23 07:55] LABS: PTT 31.5 SEC (25-37)
[2018-01-23 08:13] LABS: CHLORIDE 104 MEQ/L (99-109); CREATININE 0.7 MG/DL (0.6-1.3); GFR ESTIMATE (CALCULATED) > 59 mL/min/; GLUCOSE 152 mg/dL (70-99); POTASSIUM 4.2 MEQ/L (3.7-5.4); SODIUM 140 MEQ/L (136-147); UREA NITROGEN (BUN) 12 mg/dL (9-23)
[2018-01-23 08:14] LABS: TROP-I INTERPRETATION NEGATIVE; TROPONIN-I 0.01 ng/mL (0.0-0.30)
[2018-01-23 09:55] LABS: BASE EXCESS 4.6 mEq/L (-3 to +3); BICARBONATE 35.1 mEq/L (22-26); CARBOXY HGB 4.8 % (0-5)
[2018-01-23 09:56] LABS: COMMENTS - BLOOD GASES A+C+; CONTINUOUS POS AIRWAY PRESSURE 5 cm H2O; DEVICE 980; FI02 40 %; MODE SPONT; PCO2 80 mm Hg (35-45); PO2 70 mm Hg (80-100); PRES. SUPPORT 15 CM/H2O; SITE RR; TOTAL RESP RATE 14 resp/min; pH 7.25 (7.35-7.45)
[2018-01-23] MEDS ORDERED: OXYCODONE HCL30 MG PO (14:55)
[2018-01-23] MEDS ORDERED: DALIRESP500 MCG PO (14:55)
[2018-01-23] MEDS ORDERED: COMBIVENT RESPIM4 GM IH (14:55)
[2018-01-23] MEDS ORDERED: BREO ELLIPTA I1 EACH IH (14:55)
[2018-01-23] MEDS ORDERED: TIZANIDINE HCL4 MG PO (14:56)
[2018-01-23] MEDS ORDERED: COLACE100 MG PO (14:57)
== END 2018-01-23 18:45 | disposition left against medical advice (07) | DRG 190 ==
LOC: EME → EDBD 07:17 → EME 07:17 → EDOF 10:19 → ENRESERV 10:20 → 4WEST 11:59
PROVIDERS: Emergency Medicine
DX: J44.1 Chronic obstructive pulmonary disease with (acute) exacerbation (principal); J44.0 Chronic obstructive pulmonary disease with (acute) lower respiratory infection; J18.9 Pneumonia, unspecified organism; J96.91 Respiratory failure, unspecified with hypoxia; E87.2 Acidosis; I25.10 Atherosclerotic heart disease of native coronary artery without angina pectoris; Z98.61 Coronary angioplasty status; I11.0 Hypertensive heart disease with heart failure; I50.9 Heart failure, unspecified; Z85.118 Personal history of other malignant neoplasm of bronchus and lung; Z99.81 Dependence on supplemental oxygen; E78.5 Hyperlipidemia, unspecified; M79.7 Fibromyalgia; F17.200 Nicotine dependence, unspecified, uncomplicated; Z66 Do not resuscitate
CPT/HCPCS: 36600; 71045; 80048; 82803; 83605; 83880; 84484; 85025; 85610; 85730; 87040; 87641; 93005; 94002; 94640; 94640 76; 99202; 99281; 99285; J0456; J0696; J1650; J2920